=== PATIENT | male | born 1950 | race Hispanic/Latino ===

== ENCOUNTER 2018-11-23 06:41 | Day surgery (SDC) | payer MEDICARE, OTHER ==
[2018-11-21 10:13] VITALS: BP 139/64
[2018-11-21 10:20] LABS: BASOPHILS % (AUTO) 0.7 % (0.0-5.0); EOSINOPHILS % (AUTO) 2.4 % (0.0-8.0); HEMATOCRIT 39.3 % (42-54); LYMPHOCYTES % (AUTO) 21.3 % (21.0-51.0); MEAN CORPUSCULAR HEMOGLOBIN 27.6 pg (27.0-33.0); MEAN CORPUSCULAR HGB CONC 33.1 g/dL (32.0-36.0); MEAN CORPUSCULAR VOLUME 83.4 fL (79-99); MONOCYTES % (AUTO) 6.7 % (3.0-13.0); NEUTROPHILS % (AUTO) 68.9 % (40.0-77.0); PLATELET COUNT (AUTO) 136 K/uL (130-400); RED BLOOD CELL COUNT(AUTO) 4.72 MIL/uL (4.50-6.20); RED CELL DISTRIBUTION WIDTH 16.8 % (11.0-15.5); WHITE BLOOD COUNT (AUTO) 6.7 K/uL (4.8-10.8)
[2018-11-21 10:22] LABS: APPEARANCE,URINE Clear (CLEAR); BILIRUBIN,URINE Negative (NEGATIVE); COLOR,URINE Yellow (YELLOW); GLUCOSE, URINE (UA) Negative (NEGATIVE); KETONES,URINE Negative (NEGATIVE); LEUKOCYTE ESTERASE ,URINE Trace (NEGATIVE); NITRATE,URINE Negative (NEGATIVE); OCCULT BLOOD,URINE Negative (NEGATIVE); PH,URINE 6.5 (5.0-8.0); PROTEIN,URINE Negative (NEGATIVE)
[2018-11-21 10:27] LABS: CREATININE 1.3 mg/dL (0.5-1.5); POTASSIUM 4.1 mmol/L (3.5-5.1)
[2018-11-21 10:32] LABS: INR 0.97 (0.85-1.15); PROTHROMBIN TIME 10.2 SEC (9.6-11.6)
[2018-11-21 10:42] LABS: BACTERIA,URINE None Seen /HPF (None Seen); RBC,URINE None Seen /HPF (0-1); WBC,URINE 0-1 /HPF (0-1)
--- NOTE | 2018-11-22 13:12 | NUR ---
LABS CREA 1.3 REPORTED TO POLLO ESPINAL , NO FURTHER ORDERS GIVEN. OK TO PROCEED WITH PLANNED PROCEDURE
[~2018-11-23] VITALS: Ht 160 cm; Wt 66.6 kg
[2018-11-23] VITALS (9 sets, daily range): BP systolic 118–138; BP diastolic 53–66
[~2018-11-23 06:41] MED LIST: ASPI-1114 PO; ATOR40TA71 PO; BENA20TA10 PO; CARB6TAB PO; DICL2100G TP; GABA-531 PO; ISOS10TA8 PO; LABE100T5 PO; MONT10TA24 PO; NITR0.4T50 SL; SODIUM CHLORIDE 0.9% 500ML 500 ML IV SCH; TEST200V21 IM; TRAM50TA2 PO
[2018-11-23] MEDS ORDERED: SODIUM CHLORIDE 0.9% 1000ML 1,000 ML IV ONE (08:16)
--- NOTE | 2018-11-23 10:00 | NUR ---
UPDATE GIVEN TO BOTH PATIENT AND ON PROCEDURE START TIME, PT AGREED TO WAIT.
--- NOTE | 2018-11-23 11:30 | NUR ---
UPDATE GIVEN TO BOTH PATIENT AND ON PROCEDURE START TIME, PT AGREED TO WAIT.
--- NOTE | 2018-11-23 12:30 | NUR ---
UPDATE GIVEN TO BOTH PATIENT AND ON PROCEDURE START TIME, PT AGREED TO WAIT.
--- NOTE | 2018-11-23 13:07 | NUR ---
PT UPSET FOR DELAY AND IS REQUESTING TO LEAVE, NOTIFIED POLLO ESPINAL OF DR. RUCKER. HE STATED IF PT WANTED TO LEAVE FOR PT TO LEAVE. BARRON MANNING FROM SYSTEMS MANAGER IN TO TALK TO PATIENT AND FAMILY.PT AGREED TO STAY,POLLO ESPINAL CAME TO TALK TO PATIENT. DR. RUCKER IN TO TALK TO PATIENT. PATIENT AGREED TO STAY FOR PROCEDURE.
[2018-11-23] MEDS ORDERED: NITROGLYCERIN 5 MG/ML 10 ML VIAL IV ONE (13:53)
[2018-11-23] MEDS ORDERED: IOHEXOL-350 50ML VIAL IV ONE (13:53)
[2018-11-23] MEDS ORDERED: IOHEXOL 350 MG/ML 100ML INFUS..BTL IV ONE (13:53)
[2018-11-23] MEDS ORDERED: LIDOCAINE HCL 2% 20ML ONE (13:54)
[2018-11-23] MEDS ORDERED: LABETALOL HCL 5 MG/ML 20ML VIAL IV ONE (14:15)
[2018-11-23] MEDS ORDERED: SODIUM CHLORIDE 0.9% 1000ML 1,000 ML IV SCH (14:54)
--- NOTE | 2018-11-23 18:00 | NUR ---
PT DISCHARGED HOME, TOLERATING FLUIDS AND FOOD WELL, VOIDED LARGE AMOUNT, AMBULATING WELL. PT DENIES ANY SEVERE PAIN, NAUSEA, OR DIZZINESS. PT AND SPOUSE INSTRUCTED IN ROUTINE AND EMERGENCY CARE OF GROIN CATH SITE. RIGHT FEMORAL CATH SITE REMAINS SOFT, NON-TENDER, DRESSING DRY, CLEAN, AND INTACT, S ANY EVIDENCE OF BLEEDING. PT AND SPOUSE DENY ANY FURTHER QUESTIONS AT THIS TIME.
== END 2018-11-23 18:00 | disposition home or self-care (01) ==
LOC: DAH 06:41
PROVIDERS: ATTEND Internal Medicine Cardiovascular Disease
DX: I25.10 Atherosclerotic heart disease of native coronary artery without angina pectoris (principal); R07.9 Chest pain, unspecified; R00.1 Bradycardia, unspecified; I45.10 Unspecified right bundle-branch block
CPT/HCPCS: 36415; 71045; 80048; 81001; 85025; 85610; 85730; 93005; 93458; 93567; A4606; C1760; C1769; C1894; J1644; J3490 ×3; J7030; Q9965 ×2; Q9967 ×2

== ENCOUNTER 2019-07-02 07:03 | Day surgery (SDC) | payer MEDICARE ==
[2019-06-29 14:46] LABS: BASOPHILS % (AUTO) 0.5 % (0.0-5.0); EOSINOPHILS % (AUTO) 1.5 % (0.0-8.0); HEMATOCRIT 35.8 % (42-54); LYMPHOCYTES % (AUTO) 19.3 % (21.0-51.0); MEAN CORPUSCULAR HEMOGLOBIN 28.9 pg (27.0-33.0); MEAN CORPUSCULAR HGB CONC 32.7 g/dL (32.0-36.0); MEAN CORPUSCULAR VOLUME 88.4 fL (79-99); MONOCYTES % (AUTO) 7.1 % (3.0-13.0); NEUTROPHILS % (AUTO) 71.3 % (40.0-77.0); PLATELET COUNT (AUTO) 177 K/uL (130-400); RED BLOOD CELL COUNT(AUTO) 4.05 MIL/uL (4.50-6.20); RED CELL DISTRIBUTION WIDTH 14.5 % (11.0-15.5); WHITE BLOOD COUNT (AUTO) 8.8 K/uL (4.8-10.8)
[2019-06-29 14:51] LABS: APPEARANCE,URINE Clear (CLEAR); BILIRUBIN,URINE Negative (NEGATIVE); COLOR,URINE Yellow (YELLOW); GLUCOSE, URINE (UA) Negative (NEGATIVE); KETONES,URINE Negative (NEGATIVE); LEUKOCYTE ESTERASE ,URINE Negative (NEGATIVE); NITRATE,URINE Negative (NEGATIVE); OCCULT BLOOD,URINE Negative (NEGATIVE); PROTEIN,URINE Negative (NEGATIVE); UROBILINOGEN,URINE 0.2 mg/dL (0.2-1.0)
[2019-06-29 14:55] LABS: CREATININE 1.3 mg/dL (0.5-1.5); POTASSIUM 3.9 mmol/L (3.5-5.1)
[2019-06-29 14:56] VITALS: BP 184/64
[2019-06-29 14:57] LABS: INR 1.05 (0.85-1.15); PARTIAL THROMBOPLASTIN TIME 24.3 SEC (26.3-35.5)
--- NOTE | 2019-06-29 15:28 | NUR ---
PT REFUSED TO STAY AND WAIT FOR CHEST XRAY.
[~2019-07-02] VITALS: Ht 162.6 cm; Wt 67.0 kg
[2019-07-02] VITALS (7 sets, daily range): BP systolic 130–153; BP diastolic 58–71
[~2019-07-02 07:03] MED LIST changes: -BENA20TA10 PO; -CARB6TAB PO; +CETI10TA57 PO; -GABA-531 PO; +GABA600T10 PO; +SODIUM CHLORIDE 0.9% 1000ML 0 ML IV ONE; -TEST200V21 IM; +VARD20TA PO
[2019-07-02] MEDS ORDERED: SODIUM CHLORIDE 0.9% 1000ML 1,000 ML IV ONE (07:05)
[2019-07-02] MEDS ORDERED: TEST100V IM (07:45)
--- NOTE | 2019-07-02 08:11 | NUR ---
LABS ABNORMAL CREA REPORTED TO POLLO ESPINAL, NO FURTHER ORDERS GIVEN
[2019-07-02] MEDS ORDERED: HEPARIN SODIUM 1000UNIT/ML 10ML VIAL ONE (08:52)
[2019-07-02] MEDS ORDERED: SODIUM BICARB 50MEQ 50ML VIAL ONE (08:52)
[2019-07-02] MEDS ORDERED: LIDOCAINE HCL 2% 20ML ONE (08:53)
[2019-07-02] MEDS ORDERED: NITROGLYCERIN 5 MG/ML 10 ML VIAL IV ONE (08:53)
[2019-07-02] MEDS ORDERED: IODIXANOL 320 MG/ML 100 ML VIAL ONE (08:53)
--- NOTE | 2019-07-02 09:00 | NUR ---
PROCEDURE PT TAKEN TO CERTIFIED NURSE AIDE FOR SCHEDULED PROCEDURE
[2019-07-02] MEDS ORDERED: HYDRALAZINE HCL 20 MG/ML VIAL ONE (09:41)
--- NOTE | 2019-07-02 10:05 | NUR ---
post received pt back from labor crew supervisor, s/p renal angiogram, right groin with perclose closure device, see post cath assesment. vs stable on arrival. pt awake and alert, denied any pain or discomforts. plan of care disucuss with patient /spouse. call light within reach, spouse at bedside. DR. Meng spoke to patient /spouse on angiogram findings
[2019-07-02] MEDS ORDERED: ACETAMINOPHEN 325 MG TAB ONE (10:43)
[2019-07-02] MEDS ORDERED: ACETAMINOPHEN 325 MG TAB PO SCH (11:00)
--- NOTE | 2019-07-02 12:20 | NUR ---
dc pt dc home via wc,no distress noted. pt denied any pain or discomforts. right groin asymptomatic, pt accompanied by spouse , dc instructions reinforced , rx given to patients spouse. instructed on new med regimen, both verbalized understanding
== END 2019-07-02 12:20 | disposition home or self-care (01) ==
LOC: DAH 07:03
PROVIDERS: ATTEND Internal Medicine Cardiovascular Disease
DX: N17.9 Acute kidney failure, unspecified (principal); R94.4 Abnormal results of kidney function studies; I11.0 Hypertensive heart disease with heart failure; I50.32 Chronic diastolic (congestive) heart failure; E78.2 Mixed hyperlipidemia; M10.9 Gout, unspecified; Z79.899 Other long term (current) drug therapy; Z98.890 Other specified postprocedural states; Z79.82 Long term (current) use of aspirin; Z88.8 Allergy status to other drugs, medicaments and biological substances; Z82.49 Family history of ischemic heart disease and other diseases of the circulatory system; Z82.3 Family history of stroke
CPT/HCPCS: 36252; 36415; 71045; 80048; 81003; 85025; 85610; 85730; 93005; A4215; A4216; A4221; A4222; A4223 ×3; A4606; A4663; C1760; C1887; C1894 ×2; J0360; J1644; J3490 ×3; J7030; Q9967